=== PATIENT | female | born 1945 | race Caucasian/White ===

== ENCOUNTER 2020-08-24 04:14 | Day surgery (SDC) | payer OTHER, BC ==
[2020-08-23 12:00] VITALS: BMI 37.8
[2020-08-24] MEDS ORDERED: DEXAMETHASONE SOD PHOSPHATE/PF 10 MG/ML SDV ONE (07:21)
[2020-08-24] MEDS ORDERED: LIDOCAINE HCL/PF 1% SDV 5ML VIAL ONE (07:27)
[2020-08-24] MEDS ORDERED: IOHEXOL 180 MG/1 ML ML IJ ONE (12:25)
[2020-08-24] MEDS ORDERED: DEXAMETHASONE SOD PHOSPHATE 10 MG/1 ML VIAL IM ONE (12:26)
[2020-08-24] MEDS ORDERED: LIDOCAINE HCL 1% PRESERVATIVE FREE - 30ML VIAL NR ONE (12:26)
[2020-08-24 15:35] VITALS: PULSE 68
[2020-08-24 15:39] VITALS: BP 150/80; TEMP 98
== END 2020-08-24 13:05 | disposition home or self-care (01) ==
LOC: JASU-SURG 04:14
PROVIDERS: ATTEND Pain Medicine Pain Medicine
PROC: 3E0R33Z Introduction of Anti-inflammatory into Spinal Canal, Percutaneous Approach (ICD-10-PCS; 2020-08-24)
PROC: 3E0R3BZ Introduction of Anesthetic Agent into Spinal Canal, Percutaneous Approach (ICD-10-PCS; principal; 2020-08-24 11:30)
DX: M54.16 Radiculopathy, lumbar region (principal)
CPT/HCPCS: 76000-TC-FY; J1100

== ENCOUNTER 2022-01-21 04:29 | Day surgery (SDC) | payer OTHER, BC ==
[2022-01-20 12:23] VITALS: BMI 32.5
[2022-01-21] MEDS ORDERED: LIDOCAINE HCL/PF 1% SDV 5ML VIAL ONE (07:31)
[2022-01-21] MEDS ORDERED: DEXAMETHASONE SOD PHOSPHATE 10 MG/1 ML VIAL ONE (07:31)
[2022-01-21] MEDS ORDERED: LIDOCAINE HCL 1% PRESERVATIVE FREE - 30ML VIAL IJ ONE ×3 (10:26→10:32)
[2022-01-21] MEDS ORDERED: DEXAMETHASONE SOD PHOSPHATE 10 MG/1 ML VIAL IM ONE ×2 (10:31→10:32)
[2022-01-21] MEDS ORDERED: IOHEXOL 180 MG/1 ML ML IJ ONE (10:32)
[2022-01-21 10:57] VITALS: RESP 18
[2022-01-21 11:10] VITALS: BP 134/79; PULSE 75; TEMP 97.7
== END 2022-01-21 11:05 | disposition home or self-care (01) ==
LOC: JASU-SURG 04:29
PROVIDERS: ATTEND Pain Medicine Pain Medicine
PROC: 3E0R33Z Introduction of Anti-inflammatory into Spinal Canal, Percutaneous Approach (ICD-10-PCS; 2022-01-21)
PROC: 3E0R3BZ Introduction of Anesthetic Agent into Spinal Canal, Percutaneous Approach (ICD-10-PCS; principal; 2022-01-21 09:30)
DX: M54.16 Radiculopathy, lumbar region (principal)
CPT/HCPCS: 76000-TC-FY; J1100

== ENCOUNTER 2022-07-22 04:29 | Day surgery (SDC) | payer OTHER, BC ==
[2022-07-21 11:40] VITALS: BMI 32.5
[~2022-07-22 04:29] MED LIST: LIDOCAINE 1% P/F 10 MG/ML VIAL INF ONE
[2022-07-22] MEDS ORDERED: LIDOCAINE HCL/PF 1% SDV 5ML VIAL ONE (07:17)
[2022-07-22] MEDS ORDERED: LIDOCAINE 1% P/F 10 MG/ML VIAL INF ONE (08:36)
[2022-07-22 12:05] VITALS: BP 151/79; PULSE 70; RESP 18; TEMP 97.9
[2022-07-22] MEDS ORDERED: ACETAMINOPHEN 500 MG TABLET (FP) PO PRN (16:16)
== END 2022-07-22 10:00 | disposition home or self-care (01) ==
LOC: JASU-SURG 04:29
PROVIDERS: ATTEND Pain Medicine Pain Medicine
PROC: 01HY3MZ Insertion of Neurostimulator Lead into Peripheral Nerve, Percutaneous Approach (ICD-10-PCS; principal; 2022-07-22 08:00)
DX: G89.4 Chronic pain syndrome (principal)
CPT/HCPCS: 64555; C1778

== ENCOUNTER 2022-10-28 05:16 | Day surgery (SDC) | payer OTHER, BC ==
[2022-10-23 17:49] VITALS: BMI 32.5
[~2022-10-28 05:16] MED LIST changes: +DEXAMETHASONE SOD PHOSPHATE 10 MG/1 ML VIAL IM ONE; +IOHEXOL 180 MG/1 ML ML IJ ONE; -LIDOCAINE 1% P/F 10 MG/ML VIAL INF ONE; +LIDOCAINE HCL 1% PRESERVATIVE FREE - 30ML VIAL IJ ONE
[2022-10-28] MEDS ORDERED: ACETAMINOPHEN 500 MG TABLET (FP) PO PRN (07:35)
[2022-10-28] MEDS ORDERED: LIDOCAINE HCL/PF 1% SDV 5ML VIAL ONE (07:37)
[2022-10-28] MEDS ORDERED: LIDOCAINE HCL 1% PRESERVATIVE FREE - 30ML VIAL IJ ONE ×2 (13:51→13:52)
[2022-10-28] MEDS ORDERED: IOHEXOL 180 MG/1 ML ML IJ ONE ×2 (13:52→13:56)
[2022-10-28] MEDS ORDERED: DEXAMETHASONE SOD PHOSPHATE 10 MG/1 ML VIAL IM ONE ×2 (13:52→13:58)
[2022-10-28 14:33] VITALS: BP 158/79; PULSE 64; RESP 16; TEMP 98.3
== END 2022-10-28 14:40 | disposition home or self-care (01) ==
LOC: JASU-SURG 05:16
PROVIDERS: ATTEND Pain Medicine Pain Medicine
PROC: 3E0R3BZ Introduction of Anesthetic Agent into Spinal Canal, Percutaneous Approach (ICD-10-PCS; 2022-10-28)
PROC: 3E0R33Z Introduction of Anti-inflammatory into Spinal Canal, Percutaneous Approach (ICD-10-PCS; principal; 2022-10-28 14:30)
DX: M54.16 Radiculopathy, lumbar region (principal)
CPT/HCPCS: 76000-TC-FY; J1100

== ENCOUNTER 2023-11-19 04:15 | Day surgery (SDC) | payer OTHER, BC ==
[2023-11-18 12:31] VITALS: BMI 32.5
[2023-11-19 09:10] VITALS: TEMP 97.3
[2023-11-19] MEDS: IOHEXOL 180 MG/1 ML ML IJ ONE ×3 (10:47)
[2023-11-19] MEDS: DEXAMETHASONE SOD PHOSPHATE 10 MG/1 ML VIAL IVPUSH ONE ×2 (10:47)
[2023-11-19] MEDS: LIDOCAINE HCL 1% PRESERVATIVE FREE - 30ML VIAL IJ ONE ×3 (10:47)
[2023-11-19 12:42] VITALS: BP 138/75; PULSE 61; RESP 20
[2023-11-19] MEDS ORDERED: ACETAMINOPHEN 500 MG TABLET (FP) PO PRN (13:01)
== END 2023-11-19 11:29 | disposition home or self-care (01) ==
LOC: JASU-SURG 04:15
PROVIDERS: ATTEND Pain Medicine Pain Medicine
PROC: 3E0R3BZ Introduction of Anesthetic Agent into Spinal Canal, Percutaneous Approach (ICD-10-PCS; 2023-11-19)
PROC: 3E0R33Z Introduction of Anti-inflammatory into Spinal Canal, Percutaneous Approach (ICD-10-PCS; principal; 2023-11-19 10:15)
DX: M54.12 Radiculopathy, cervical region (principal)
CPT/HCPCS: 76000-TC-FY; J1100

== ENCOUNTER 2023-12-17 04:33 | Day surgery (SDC) | payer OTHER, BC ==
[2023-12-14 17:38] VITALS: BMI 32.5
[2023-12-17] MEDS ORDERED: DEXAMETHASONE SOD PHOSPHATE 10 MG/1 ML VIAL ONE (07:17)
[2023-12-17] MEDS ORDERED: LIDOCAINE HCL/PF 1% SDV 5ML VIAL ONE ×2 (07:17→11:44)
[2023-12-17 10:53] VITALS: RESP 18
[2023-12-17] MEDS: LIDOCAINE HCL 1% PRESERVATIVE FREE - 30ML VIAL IJ ONE (11:54)
[2023-12-17] MEDS: IOHEXOL 180 MG/1 ML ML IJ ONE (11:57)
[2023-12-17] MEDS: DEXAMETHASONE SOD PHOSPHATE 10 MG/1 ML VIAL IM ONE (11:58)
[2023-12-17 12:18] VITALS: BP 147/75; PULSE 68; TEMP 97.3
[2023-12-17] MEDS ORDERED: ACETAMINOPHEN 500 MG TABLET (FP) PO PRN (13:20)
== END 2023-12-17 12:50 | disposition home or self-care (01) ==
LOC: JASU-SURG 04:33
PROVIDERS: ATTEND Pain Medicine Pain Medicine
PROC: 3E0R33Z Introduction of Anti-inflammatory into Spinal Canal, Percutaneous Approach (ICD-10-PCS; principal; 2023-12-17 11:45)
DX: M54.12 Radiculopathy, cervical region (principal)
CPT/HCPCS: 76000-TC-FY; J1100